=== PATIENT | male | born 1960 | race Caucasian/White ===

== ENCOUNTER → 2023-11-12 11:59 | Outpatient (REF) | payer MEDICARE, OTHER, SELFPAY ==
[2023-11-12 16:23] LABS: PSA, Total - Screen 1.33 ng/ml (0.0-4.0)
[2023-11-12 16:33] LABS: Hematocrit 42.1 % (39.0-52.0); Hemoglobin 14.3 g/dL (13.0-18.0); Mean Corpuscular Hgb 31.1 pg (27.0-31.0); Mean Corpuscular Volume 91.5 fL (80.0-94.0); Platelet Count 319 10^3/uL (130-400); Red Cell Dist. Width 13.2 % (11.5-14.5)
[2023-11-14 21:27] LABS: % Free Testosterone 1.6 % (1.6-2.9); Free Testosterone 8 pg/mL (47-244); Sex Hormone Binding Globulin 35 nmol/L (19-76); Total Testosterone 49 ng/dL (300-720)
== END ==
LOC: REG 11:59
PROVIDERS: ATTENDING PHYSICIAN Specialist; FAMILY PHYSICIAN Family Medicine
DX: E29.1 Testicular hypofunction (principal)
CPT/HCPCS: 36415; 84270; 84402; 84403; 85027; G0103

== ENCOUNTER → 2024-08-06 08:12 | Outpatient (REF) | payer MEDICARE, OTHER, SELFPAY ==
[2024-08-06 09:18] LABS: % Basophils 0.9 % (0-2); % Eosinophils 1.8 % (0-6); % Immature Granulocytes 0.4 % (0-0.5); % Lymphocytes 19.4 % (20.5-51.1); % Monocytes 10.5 % (1.7-9.3); Absolute Basophils 0.1 10^3/uL (0-0.2); Absolute Eosinophils 0.1 10^3/uL (0-0.7); Absolute Lymphocytes 1.3 10^3/uL (1.2-3.4); Absolute Monocytes 0.7 10^3/uL (0.1-0.6); Absolute Neutrophils 4.6 10^3/uL (1.4-6.5); Hematocrit 48.6 % (39.0-52.0); Mean Corpuscular Hgb 31.6 pg (27.0-31.0); Mean Corpuscular Volume 90.3 fL (80.0-94.0); Mean Platelet Volume 9.8 fL (7.4-10.4); Nucleated Red Blood Cells % 0 % (-); Platelet Count 307 10^3/uL (130-400); Red Blood Cell Count 5.38 10^6/uL (4.70-6.10); Red Cell Dist. Width 12.2 % (11.5-14.5); White Blood Cell Count 6.8 10^3/uL (4.8-10.8)
[2024-08-06 09:56] LABS: ALT (SGPT) 80 U/L (0-50); AST (SGOT) 45 U/L (17-59); Albumin 5.7 g/dl (3.5-5.0); Alkaline Phosphatase 88 U/L (38-126); Direct Bilirubin 0.2 mg/dl (0.0-0.4); HDL Cholesterol 105 mg/dl; LDL Cholesterol, Calculated 61 mg/dl; Total Bilirubin 1.6 mg/dl (0.2-1.3); Total Cholesterol 205 mg/dl (50-199); Total Protein 8.9 g/dl (6.3-8.2); Triglyceride 195 mg/dl (10-149); Very Low Density Lipoprotein 39 mg/dl (0-30)
[2024-08-06 10:23] LABS: PSA, Total - Diagnostic 1.96 ng/ml (0.0-4.0)
[2024-08-08 08:08] LABS: % Free Testosterone 1.5 % (1.6-2.9); Free Testosterone 28 pg/mL (47-244); Sex Hormone Binding Globulin 43 nmol/L (19-76); Total Testosterone 188 ng/dL (300-720)
== END ==
LOC: REG 08:12
PROVIDERS: ATTENDING PHYSICIAN Internal Medicine Cardiovascular Disease; FAMILY PHYSICIAN Specialist
DX: E78.00 Pure hypercholesterolemia, unspecified (principal); E29.1 Testicular hypofunction; K50.00 Crohn's disease of small intestine without complications
CPT/HCPCS: 36415; 80061; 80076; 84153; 84270; 84402; 84403; 85025

== ENCOUNTER → 2024-10-29 06:57 | Outpatient (REF) | payer MEDICARE, OTHER, SELFPAY ==
[2024-10-29 08:05] LABS: Hematocrit 44.3 % (39.0-52.0); Hemoglobin 14.9 g/dL (13.0-18.0); Mean Corp Hgb Conc. 33.6 g/dL (33.0-37.0); Mean Corpuscular Hgb 31.1 pg (27.0-31.0); Mean Corpuscular Volume 92.5 fL (80.0-94.0); Mean Platelet Volume 9.7 fL (7.4-10.4); Platelet Count 309 10^3/uL (130-400); Red Blood Cell Count 4.79 10^6/uL (4.70-6.10); Red Cell Dist. Width 12.6 % (11.5-14.5); White Blood Cell Count 6.1 10^3/uL (4.8-10.8)
[2024-10-29 08:35] LABS: ALT (SGPT) 57 U/L (0-50); AST (SGOT) 41 U/L (17-59); HDL Cholesterol 78 mg/dl; LDL Cholesterol, Calculated 85 mg/dl; Total Cholesterol 180 mg/dl (50-199); Triglyceride 89 mg/dl (10-149); Very Low Density Lipoprotein 17 mg/dl (0-30)
[2024-10-31 00:39] LABS: % Free Testosterone 1.8 % (1.6-2.9); Free Testosterone 143 pg/mL (47-244); Sex Hormone Binding Globulin 40 nmol/L (19-76); Total Testosterone 783 ng/dL (300-720)
== END ==
LOC: REG 06:57
PROVIDERS: ATTENDING PHYSICIAN Internal Medicine Cardiovascular Disease; FAMILY PHYSICIAN Family Medicine; REFERRING PHYSICIAN Specialist
DX: E78.00 Pure hypercholesterolemia, unspecified (principal); I10 Essential (primary) hypertension; E29.1 Testicular hypofunction
CPT/HCPCS: 36415; 80061; 84270; 84402; 84403; 84450; 84460; 85027

== ENCOUNTER → 2025-05-24 08:42 | Outpatient (REF) | payer MEDICARE, OTHER, SELFPAY ==
[2025-05-24 09:24] LABS: Hematocrit 43.5 % (39.0-52.0); Hemoglobin 15.2 g/dL (13.0-18.0); Mean Corp Hgb Conc. 34.9 g/dL (33.0-37.0); Mean Corpuscular Volume 88.8 fL (80.0-94.0); Platelet Count 296 10^3/uL (130-400); Red Cell Dist. Width 12.8 % (11.5-14.5)
[2025-05-24 09:49] LABS: ALT (SGPT) 86 U/L (0-50); AST (SGOT) 53 U/L (17-59); Albumin 4.7 g/dl (3.5-5.0); Alkaline Phosphatase 90 U/L (38-126); Blood Urea Nitrogen 9 mg/dl (9-20); Calcium 9.5 mg/dl (8.4-10.2); Carbon Dioxide 23 mmol/L (22-30); Chloride 100 mmol/L (98-107); Glucose 104 mg/dl (70-99); HDL Cholesterol 80 mg/dl; LDL Cholesterol, Calculated 68 mg/dl; Potassium 4.1 mmol/L (3.5-5.1); Sodium 135 mmol/L (135-145); Total Protein 7.7 g/dl (6.3-8.2); Very Low Density Lipoprotein 15 mg/dl (0-30); eGFR > 60.00
[2025-05-24 10:19] LABS: PSA, Total - Screen 2.16 ng/ml (0.0-4.0)
[2025-05-26] LABS: Testosterone, Bioavailable 391 ng/dL (131-682)
== END ==
LOC: REG 08:42
PROVIDERS: ATTENDING PHYSICIAN Internal Medicine Cardiovascular Disease; FAMILY PHYSICIAN Family Medicine; REFERRING PHYSICIAN Specialist
DX: E78.00 Pure hypercholesterolemia, unspecified (principal); E29.1 Testicular hypofunction; Z12.5 Encounter for screening for malignant neoplasm of prostate
CPT/HCPCS: 36415; 80053; 80061; 84270; 84402; 84403; 85027; G0103